=== PATIENT | male | born 1950 | race Caucasian/White ===

== ENCOUNTER 2017-01-15 21:56 | Emergency (ER) | payer MEDICARE, BC ==
[2017-01-15] MEDS ORDERED: Sodium Chloride 0.9% 10 ML Syringe FLUSH PRN (22:15)
[2017-01-15] MEDS ORDERED: Albuterol/Ipratropium 3.0-0.5 MG/3 ML Neb Soln NEB ONE ×2 (22:16→23:18)
[2017-01-15] MEDS ORDERED: methylPREDNISolone Sodium Succinate 125 MG/2 ML SDV IVPUSH ONE (22:16)
--- NOTE | 2017-01-15 22:58 | EDM.PDOC ---
ED HPI GENERAL MEDICAL PROBLEM - General Chief Complaint: Cardiovascular Problem Stated Complaint: TROUBLE BREATHING Time Seen by Provider: 01/15/17 22:10 Source of Information: Reports: Patient, Family History Limitations: Reports: No Limitations - History of Present Illness INITIAL COMMENTS - FREE TEXT/NARRATIVE: The patient presents with shortness of breath. This all started about 8pm this evening after he was leaving a wedding. He denies any chest pain. He has a productive cough at times but no fever or chills. He has COPD and he currently smokes. He has no edema or pain in his legs. He is using accessory muscles to help him breath. He has no abdominal pain, nausea or vomiting. Onset: Sudden Duration: Hour(s): (2) Severity: Moderate Improves with: Reports: None Worsens with: Reports: Movement Associated Symptoms: Reports: Cough, cough w sputum, Shortness of Breath. Denies: Chest Pain, Fever/Chills, Nausea/Vomiting - Related Data Allergies Allergy/AdvReac Type Severity Reaction Status Date / Time No Known Allergies Allergy Verified 01/15/17 22:12 Home Meds: Home Meds Alendronate [Fosamax] 70 mg PO ASDIRECTED 01/15/17 [History] Aspirin [Halfprin] 81 mg PO DAILY 01/15/17 [History] Calcium Carbonate/Vitamin D3 [Calcium 500-Vit D3 200 Caplet] 1 tab PO BID [History] Cholecalciferol (Vitamin D3) [Vitamin D3] 5,000 unit PO DAILY 01/15/17 [History] Losartan/Hydrochlorothiazide [Losartan-HCTZ 100-25 MG] 1 tab PO DAILY 01/15/17 [ History] Multivitamin [Multivitamins] 1 cap PO DAILY 01/15/17 [History] [place]-3/DHA/Epa/Fish Oil [Fish Oil 1,400 MG Softgel] 1,400 mg PO DAILY 01/15/17 [History] Pentoxifylline [TRENtal] 400 mg PO BID 01/15/17 [History] Prednisone [IJD: predniSONE] 40 mg PO WITHBREAKFAST #10 tab 01/15/17 [Rx] Simvastatin [Zocor] 20 mg PO DAILY 01/15/17 [History] amLODIPine [Norvasc] 2.5 mg PO DAILY 01/15/17 [History] metFORMIN [Glucophage] 850 mg PO BID 01/15/17 [History] Past Medical History Cardiovascular History: Reports: High Cholesterol, Hypertension Respiratory History: Reports: COPD Endocrine/Metabolic History: Reports: Diabetes, Type II Oncologic (Cancer) History: Reports: Other (See Below) Other Oncologic History: testicular cancer Social & Family History - Tobacco Use Smoking Status *Q: Current Every Day Smoker Years of Tobacco use: 40 Packs/Tins Daily: 1.5 - Caffeine Use Caffeine Use: Reports: Soda - Recreational Drug Use Recreational Drug Use: No ED ROS GENERAL - Review of Systems Review Of Systems: See Below Constitutional: Reports: No Symptoms HEENT: Reports: No Symptoms Respiratory: Reports: Shortness of Breath, Cough Cardiovascular: Reports: No Symptoms Endocrine: Reports: No Symptoms GI/Abdominal: Reports: No Symptoms : Reports: No Symptoms Musculoskeletal: Reports: No Symptoms Skin: Reports: No Symptoms ED EXAM, GENERAL - Physical Exam Exam: See Below Exam Limited By: No Limitations General Appearance: Alert, Mild Distress Ears: Normal External Exam Nose: Normal Inspection Head: Atraumatic, Normocephalic Neck: Normal Inspection Respiratory/Chest: No Respiratory Distress, Decreased Breath Sounds Cardiovascular: No Edema, No Murmur, Tachycardia GI/Abdominal: Soft, Non-Tender, No Organomegaly, No Mass Back Exam: Normal Inspection Extremities: Normal Inspection EKG INTERPRETATION EKG Date: 01/15/17 Time: 22:13 Rhythm: Other (Sinus tachycardia) Rate (Beats/Min): 126 [place]: Normal P-Wave: Present QRS: Normal ST-T: Normal QT: Normal Course - Vital Signs Last Recorded V/S: Last Vital Signs Temp 96.5 F 01/15/17 22:07 Pulse 134 H 01/15/17 22:07 Resp 26 H 01/15/17 22:07 BP 150/102 H 01/15/17 22:07 Pulse Ox 96 01/15/17 23:29 - Orders/Labs/Meds Orders: Active Orders 24 hr Category Date Time Status Cardiac Monitoring [RC] . DIRECTED Care 01/15/17 22:15 Active EKG Documentation Completion [RC] STAT Care 01/15/17 22:16 Active Oxygen Therapy [RC] PRN Care 01/15/17 22:15 Active Peripheral IV Care [RC] . DIRECTED Care 01/15/17 22:16 Active RT Aerosol Therapy [RC] ASDIRECTED Care 01/15/17 22:16 Active RT Aerosol Therapy [RC] ASDIRECTED Care 01/15/17 23:18 Active RT Post Treatment Assessment [RC] Click to Edit Care 01/15/17 23:48 Ordered RT Pre-Treatment Assessment [RC] Click to Edit Care 01/15/17 23:48 Ordered Chest 1V Frontal [CR] Stat Exams 01/15/17 22:16 Taken Albuterol [Proventil HFA] Med 01/15/17 23:48 Once 1 gm INH ONETIME ONE Sodium Chloride 0.9% [Saline Flush] Med 01/15/17 22:15 Active 10 ml FLUSH ASDIRECTED PRN Peripheral IV Insertion Adult [OM.PC] Stat Oth 01/15/17 22:15 Ordered Medication Orders Sodium Chloride (Saline Flush) 10 ml FLUSH ASDIRECTED PRN PRN Reason: Keep Vein Open Last Admin: 01/15/17 22:38 Dose: 10 ml Labs: Laboratory Tests 01/15/17 01/15/17 01/15/17 Range/Units 22:35 22:35 22:35 WBC 8.21 (4.23-9.07) K/mm3 RBC 4.24 L (4.63-6.08) M/mm3 Hgb 14.6 (13.7-17.5) gm/L Hct 40.8 (40.1-51.0) % MCV 96.2 H (79.0-92.2) fl MCH 34.4 H (25.7-32.2) pg MCHC 35.8 H (32.2-35.5) g/dl RDW Std Deviation 40.4 (35.1-43.9) fL Plt Count 301 (163-337) K/mm3 MPV 9.4 (9.4-12.3) fl Neut % (Auto) 60.0 (34.0-67.9) % Lymph % (Auto) 28.9 (21.8-53.1) % [place] % (Auto) 9.0 (5.3-12.2) % Eos % (Auto) 1.6 (0.8-7.0) Baso % (Auto) 0.4 (0.1-1.2) % Neut # (Auto) 4.93 (1.78-5.38) K/mm3 Lymph # (Auto) 2.37 (1.32-3.57) K/mm3 [place] # (Auto) 0.74 (0.30-0.82) K/mm3 Eos # (Auto) 0.13 (0.04-0.54) K/mm3 Baso # (Auto) 0.03 (0.01-0.08) K/mm3 D-Dimer, Quantitative 0.45 (0.19-0.59) mg/L Sodium 137 (136-145) mEq/L Potassium 4.1 (3.5-5.1) mEq/L Chloride 99 (98-107) mEq/L Carbon Dioxide 24 (21-32) mEq/L Anion Gap 18.1 H (5-15) BUN 9 (7-18) mg/dL Creatinine 0.8 (0.7-1.3) mg/dL Est Cr Clr Drug Dosing 88.59 mL/min Estimated GFR (MDRD) > 60 (>60) mL/min BUN/Creatinine Ratio 11.3 L (14-18) Glucose 131 H (80-115) mg/dL Calcium 9.0 (8.5-10.1) mg/dL Total Bilirubin 0.4 (0.2-1.0) mg/dL AST 22 (15-37) U/L ALT 20 (16-63) U/L Alkaline Phosphatase 62 (46-116) U/L Troponin I < 0.017 (0.00-0.056) ng/mL Total Protein 7.5 (6.4-8.2) g/dl Albumin 4.0 (3.4-5.0) g/dl Globulin 3.5 gm/dL Albumin/Globulin Ratio 1.1 (1-2) Meds: Medications Generic Name Dose Route Start Last Admin Trade Name Freq PRN Reason Stop Dose Admin Sodium Chloride 10 ml 01/15/17 22:15 01/15/17 22:38 Saline Flush FLUSH 10 ml ASDIRECTED PRN Administration Keep Vein Open Discontinued Medications Generic Name Dose Route Start Last Admin Trade Name Freq PRN Reason Stop Dose Admin Albuterol/Ipratropium 3 ml 01/15/17 22:16 01/15/17 22:27 Duoneb 3.0-0.5 Mg/3 Ml NEB 01/15/17 22:17 3 ml ONETIME ONE Administration Albuterol/Ipratropium 3 ml 01/15/17 23:18 01/15/17 23:26 Duoneb 3.0-0.5 Mg/3 Ml NEB 01/15/17 23:19 3 ml ONETIME ONE Administration Methylprednisolone Sodium Succinate 125 mg 01/15/17 22:16 01/15/17 22:38 Solu-Medrol IVPUSH 01/15/17 22:17 125 mg ONETIME ONE Administration - Re-Assessments/Exams Free Text/Narrative Re-Assessment/Exam: 01/15/17 22:57 I ordered oxygen, IV saline lock, duoneb, solu-medrol 125mg IV, labs, CXR, and EKG. 01/15/17 23:48 His CXR shows no pneumonia. He does show COPD changes. His EKG shows a sinus tachycardia with no acute changes. His labs all look good. I ordered another duoneb and he is moving air better. I will give him an inhaler to go home with and some prednisone. Departure - Departure Time of Disposition: 23:50 Disposition: Home, Self-Care 01 Condition: Good Clinical Impression: COPD exacerbation Prescriptions: Prednisone [IJD: predniSONE] 40 mg PO WITHBREAKFAST #10 tab Referrals: Yoel Wright MD [Primary Care Provider] - 1 Week Forms: ED Department Discharge Additional Instructions: Take the prednisone daily for 5 days. Use the inhaler 2 puffs every 6 hours as needed for shortness of breath or wheezing. Please return if you are worse. Follow up with Dr Wright next week. - My Orders Last 24 Hours: My Active Orders 01/15/17 22:15 Cardiac Monitoring [RC] . DIRECTED Oxygen Therapy [RC] PRN Sodium Chloride 0.9% [Saline Flush] 10 ml FLUSH ASDIRECTED PRN Peripheral IV Insertion Adult [OM.PC] Stat 01/15/17 22:16 EKG Documentation Completion [RC] STAT Peripheral IV Care [RC] . DIRECTED RT Aerosol Therapy [RC] ASDIRECTED Chest 1V Frontal [CR] Stat 01/15/17 23:18 RT Aerosol Therapy [RC] ASDIRECTED 01/15/17 23:48 RT Post Treatment Assessment [RC] Click to Edit RT Pre-Treatment Assessment [RC] Click to Edit Albuterol [Proventil HFA] 1 gm INH ONETIME ONE - Assessment/Plan Last 24 Hours: My Active Orders 01/15/17 22:15 Cardiac Monitoring [RC] . DIRECTED Oxygen Therapy [RC] PRN Sodium Chloride 0.9% [Saline Flush] 10 ml FLUSH ASDIRECTED PRN Peripheral IV Insertion Adult [OM.PC] Stat 01/15/17 22:16 EKG Documentation Completion [RC] STAT Peripheral IV Care [RC] . DIRECTED RT Aerosol Therapy [RC] ASDIRECTED Chest 1V Frontal [CR] Stat 01/15/17 23:18 RT Aerosol Therapy [RC] ASDIRECTED 01/15/17 23:48 RT Post Treatment Assessment [RC] Click to Edit RT Pre-Treatment Assessment [RC] Click to Edit Albuterol [Proventil HFA] 1 gm INH ONETIME ONE
[2017-01-15] MEDS ORDERED: Albuterol 6.7 GM Inhaler INH ONE (23:48)
--- NOTE | 2017-01-16 17:11 | CR ---
Chest: Portable view of the chest was obtained. Comparison: No prior chest x-ray is available. Heart size and mediastinum are normal. Lungs are hyperinflated compatible with emphysematous change. No acute infiltrates are appreciated. Bony structures are osteopenic. Impression: 1. Emphysematous change. 2. Nothing acute is appreciated on portable chest x-ray. Diagnostic code #2
== END 2017-01-16 00:13 | disposition home or self-care (01) ==
LOC: JD.ED 21:56
DX: J44.1 Chronic obstructive pulmonary disease with (acute) exacerbation (principal); I10 Essential (primary) hypertension; E11.9 Type 2 diabetes mellitus without complications; F17.210 Nicotine dependence, cigarettes, uncomplicated; Z79.82 Long term (current) use of aspirin; Z79.899 Other long term (current) drug therapy; Z79.84 Long term (current) use of oral hypoglycemic drugs
CPT/HCPCS: 36415; 71010; 80053; 84484; 85025; 85379; 93005; 94640; 96374; 99285; A9270; J2930; J7050; 93010

== ENCOUNTER 2024-06-11 10:56 | Emergency (ER) | payer BC, MEDICARE ==
[2024-06-11 12:08] LABS: BASOPHILS PERCENT AUTO 0.3 % (0.0-1.0); EOSINOPHILS PERCENT AUTO 0.3 % (0.0-6.0); HEMATOCRIT 42.7 % (42.0-52.0); HEMOGLOBIN 14.6 gm/dl (14.0-18.0); IMMATURE GRAN ABSOLUTE AUTO 0.02 K/mm3 (0.00-0.05); IMMATURE GRAN PERCENT AUTO 0.2 % (0.0-0.4); LYMPHOCYTES ABSOLUTE AUTO 1.9 K/mm3 (1.0-4.8); LYMPHOCYTES PERCENT AUTO 19.3 % (24.0-44.0); MEAN CORPUSCULAR HEMOGLOBIN 31.7 pg (28.0-32.0); MEAN CORPUSCULAR HGB CONC 34.2 g/dl (32.0-36.0); MEAN CORPUSCULAR VOLUME 92.6 fl (83.0-99.0); MEAN PLATELET VOLUME 8.7 fl (9.4-12.4); MONOCYTES PERCENT AUTO 9.9 % (0.0-8.0); NEUTROPHILS ABSOLUTE AUTO 6.8 K/mm3 (1.8-7.7); PLATELET COUNT,PLT 378 K/mm3 (150-400); RED BLOOD CELL COUNT 4.61 M/mm3 (4.52-5.90); WHITE BLOOD CELL COUNT,WBC 9.67 K/mm3 (3.9-11.3)
[2024-06-11 12:41] LABS: A/G RATIO 0.8 (1-2); ALBUMIN 3.3 g/dl (3.4-5.0); ANION GAP 9.2 (5-15); BILIRUBIN TOTAL 0.4 mg/dL (0.2-1.0); C-REACTIVE PROTEIN 2.05 mg/dL (<0.30); EST CRCL DRUG DOSING (CG) 39.88 mL/min; POTASSIUM,K 4.2 mEq/L (3.5-5.1); PROTEIN TOTAL,TP 7.7 g/dl (6.4-8.2)
[2024-06-11] MEDS: Albuterol/Ipratropium 3.0-0.5 MG/3 ML Neb Soln NEB ONE (12:47)
[2024-06-11] MEDS: Sodium Chloride 0.9% 500 ML IV STA (13:18)
[2024-06-11] MEDS: predniSONE 10 MG Tab PO ONE (14:13)
[2024-06-11] MEDS: Amoxicillin/Clavulanate K 875-125 MG Tab PO ONE (14:13)
== END 2024-06-11 14:30 | disposition home or self-care (01) ==
LOC: JD.ED 10:56
DX: J44.1 Chronic obstructive pulmonary disease with (acute) exacerbation (principal); I10 Essential (primary) hypertension; E78.00 Pure hypercholesterolemia, unspecified; E11.9 Type 2 diabetes mellitus without complications; Z79.82 Long term (current) use of aspirin; Z79.899 Other long term (current) drug therapy
CPT/HCPCS: 36415; 71046; 80053; 83605; 83880; 85025; 85379; 86140; 93005; 94640; 96360; 99285; A9270; J7030; J7512; 93010; 99284